=== PATIENT | female | born 1985 | race Hispanic/Latino ===

== ENCOUNTER → 2020-09-28 | Outpatient (CLI) | payer OTHER | END | disposition home or self-care (01) | LOC: OIH 10:47 | PROVIDERS: ATTEND Internal Medicine Cardiovascular Disease | DX: Z13.6 Encounter for screening for cardiovascular disorders (principal) | CPT/HCPCS: 75571 ==

== ENCOUNTER 2020-11-17 23:36 | Emergency (ER) | payer OTHER ==
[~2020-11-17] VITALS: Ht 172.7 cm; Wt 104.3 kg
[~2020-11-17 23:36] MED LIST: LACTATED RINGERS 1000ML 1,000 ML IV ONE
[2020-11-18] MEDS ORDERED: TAMSULOSIN HCL 0.4 MG CAP.ER.24H PO STA (00:29)
[2020-11-18] MEDS ORDERED: ONDANSETRON 4MG INJ IVP ONE (00:30)
[2020-11-18] MEDS ORDERED: LACTATED RINGERS 1000ML 1,500 ML IV ONE (00:30)
[2020-11-18] MEDS ORDERED: HYDROMORPHONE 2 MG VIAL (2MG/ML) IVP ONE (00:30)
[2020-11-18 00:52] LABS: BASOPHILS % (AUTO) 0.4 % (0.0-5.0); EOSINOPHILS % (AUTO) 2.1 % (0.0-8.0); HEMATOCRIT 33.8 % (36-48); LYMPHOCYTES % (AUTO) 23.7 % (21.0-51.0); MEAN CORPUSCULAR HEMOGLOBIN 28.9 pg (27.0-33.0); MEAN CORPUSCULAR VOLUME 90.4 fL (79-99); MONOCYTES % (AUTO) 5.8 % (3.0-13.0); NEUTROPHILS % (AUTO) 67.8 % (40.0-77.0); PLATELET COUNT (AUTO) 282 K/uL (130-400); RED BLOOD CELL COUNT(AUTO) 3.74 MIL/uL (4.00-5.50); RED CELL DISTRIBUTION WIDTH 14.9 % (11.0-15.5); WHITE BLOOD COUNT (AUTO) 8.5 K/uL (4.8-10.8)
[2020-11-18] MEDS ORDERED: HYDROMORPHONE 1 MG INJ ONE (01:02)
[2020-11-18 01:03] LABS: CREATININE 1.2 mg/dL (0.5-1.5); POTASSIUM 4.6 mmol/L (3.5-5.1)
[2020-11-18 01:10] LABS: ALBUMIN 3.4 g/dL (3.5-5.0); BILIRUBIN,TOTAL 0.6 mg/dL (0.2-1.0); TOTAL PROTEIN, SERUM 7.2 g/dL (6.0-8.3)
[2020-11-18 03:14] VITALS: BP 120/82
== END 2020-11-18 03:16 | disposition home or self-care (01) ==
LOC: EDH 23:36
DX: N20.1 Calculus of ureter (principal); N13.30 Unspecified hydronephrosis; N23 Unspecified renal colic; I10 Essential (primary) hypertension; F41.9 Anxiety disorder, unspecified
CPT/HCPCS: 36415; 74176; 80053; 84703; 85025; 86140; 96361; 96374; 96375; 99284; J1170; J2405; J7120

== ENCOUNTER 2020-11-18 12:16 | Emergency (ER) | payer OTHER ==
[~2020-11-18] VITALS: Ht 175.3 cm; Wt 104.3 kg
[2020-11-18 12:18] VITALS: BP 120/67
== END 2020-11-18 15:52 | disposition left against medical advice (07) ==
LOC: EDH 12:16
DX: R10.9 Unspecified abdominal pain (principal); Z53.21 Procedure and treatment not carried out due to patient leaving prior to being seen by health care provider

== ENCOUNTER → 2020-12-01 | Outpatient (CLI) | payer OTHER | END | disposition home or self-care (01) | LOC: RAH 11:25 | PROVIDERS: ATTEND Urology | DX: N13.30 Unspecified hydronephrosis (principal) | CPT/HCPCS: 76770 ==

== ENCOUNTER 2020-12-26 12:33 | Observation (INO) | payer OTHER ==
[2020-12-23 08:31] VITALS: BP 125/78
[2020-12-26] VITALS (23 sets, daily range): BP systolic 109–157; BP diastolic 66–87
[~2020-12-26] VITALS: Ht 175.3 cm; Wt 105.4 kg
[~2020-12-26 12:33] MED LIST changes: +CLON2TAB11 PO; -LACTATED RINGERS 1000ML 1,000 ML IV ONE; +LOSA50TA64 PO
[2020-12-26] MEDS ORDERED: LACTATED RINGERS 1000ML 1,000 ML IV ONE (12:49)
[2020-12-26] MEDS: CEFTRIAXONE 1G VIAL IVP SCH ×2 (13:00→17:25)
[2020-12-26] MEDS ORDERED: IOHEXOL-350 50ML VIAL IV ONE (13:40)
[2020-12-26] MEDS ORDERED: FENTANYL CITRATE PF 50 MCG/1 ML 2ML VIAL ONE (17:22)
[2020-12-26] MEDS ORDERED: SUCCINYLCHOLINE 200MG/10ML SYR ONE (17:22)
[2020-12-26] MEDS ORDERED: PROPOFOL 10 MG/ML 20ML VIAL IV ONE ×2 (17:22→18:22)
[2020-12-26] MEDS ORDERED: ROCURONIUM 10MG/1ML SYR 10 MG/ML ML ONE (17:22)
[2020-12-26] MEDS ORDERED: MIDAZOLAM HCL 1 MG/ML 2ML VIAL ONE ×2 (17:22→18:13)
[2020-12-26] MEDS ORDERED: NEOSTIGMINE 5MG/5ML SYR IV ONE (18:05)
[2020-12-26] MEDS ORDERED: GLYCOPYRROLATE 1 MG/5 ML SYRINGE ONE (18:05)
[2020-12-26 20:20] LABS: HEMATOCRIT 34.5 % (36-48); MEAN CORPUSCULAR HEMOGLOBIN 28.6 pg (27.0-33.0); MEAN CORPUSCULAR HGB CONC 31.3 g/dL (32.0-36.0); MEAN CORPUSCULAR VOLUME 91.3 fL (79-99); PLATELET COUNT (AUTO) 323 K/uL (130-400); RED BLOOD CELL COUNT(AUTO) 3.78 MIL/uL (4.00-5.50); RED CELL DISTRIBUTION WIDTH 14.6 % (11.0-15.5); WHITE BLOOD COUNT (AUTO) 13.2 K/uL (4.8-10.8)
[2020-12-26 20:31] LABS: INR 1.03 (0.85-1.15); PROTHROMBIN TIME 11.2 SEC (9.6-11.6)
[2020-12-26 20:32] LABS: PARTIAL THROMBOPLASTIN TIME 28.1 SEC (26.3-35.5)
[2020-12-26 20:40] LABS: BAND NEUTROPHILS % (MANUAL) 5 % (0-2); EOSINOPHILS % (MANUAL) 1 % (1-6); LYMPHOCYTES % (MANUAL) 16 % (22-44); MONOCYTES % (MANUAL) 4 % (2-9); REACTIVE LYMPHOCYTES 1 % (0-0); SEGMENTED NEUTROPHILS % 73 % (40-70)
[2020-12-26 20:42] LABS: MAN.DIFF COMMENT-IMPRESSION MANUAL DIFFERENTIAL
[2020-12-26 21:05] LABS: MYOGLOBIN 1895 ng/mL (10-92)
[2020-12-26 21:06] LABS: CREATININE 0.9 mg/dL (0.5-1.5); POTASSIUM 4.3 mmol/L (3.5-5.1)
[2020-12-26 21:07] LABS: ALBUMIN 3.3 g/dL (3.5-5.0); BILIRUBIN,TOTAL 0.5 mg/dL (0.2-1.0); TOTAL PROTEIN, SERUM 7.3 g/dL (6.0-8.3)
[2020-12-26 21:22] LABS: CREATINE KINASE, TOTAL 787 U/L (21-232)
[2020-12-26] MEDS: OXYBUTYNIN CHLORIDE 5 MG TABLET PO SCH (21:55)
[2020-12-26] MEDS: ASPIRIN 81 MG EC TAB PO SCH (21:55)
[2020-12-26] MEDS: PHENAZOPYRIDINE HCL 200 MG TABLET PO SCH (21:55)
[2020-12-26] MEDS ORDERED: 0.9%NACL 1000ML 1,000 ML IV SCH (22:30)
[2020-12-26] MEDS: 0.9%NACL 1000ML 1,000 ML IV SCH (23:29)
[2020-12-27] VITALS (7 sets, daily range): BP systolic 98–118; BP diastolic 64–77
[2020-12-27 00:04] LABS: APPEARANCE,URINE Cloudy (CLEAR); BILIRUBIN,URINE Small (NEGATIVE); COLOR,URINE Orange (YELLOW); GLUCOSE, URINE (UA) Negative (NEGATIVE); KETONES,URINE Negative (NEGATIVE); LEUKOCYTE ESTERASE ,URINE Small (NEGATIVE); NITRATE,URINE Positive (NEGATIVE); OCCULT BLOOD,URINE Large (NEGATIVE); PH,URINE 6.5 (5.0-8.0); PROTEIN,URINE POS 2+ mg/dL (NEGATIVE)
[2020-12-27 00:15] LABS: BACTERIA,URINE Few /HPF (None Seen); RBC,URINE >100 /HPF (0-1)
[2020-12-27] MEDS ORDERED: CEFTRIAXONE 1G VIAL IVP SCH (02:00)
[2020-12-27 02:06] LABS: BASOPHILS % (AUTO) 0.3 % (0.0-5.0); EOSINOPHILS % (AUTO) 1.2 % (0.0-8.0); HEMATOCRIT 34.1 % (36-48); LYMPHOCYTES % (AUTO) 25.8 % (21.0-51.0); MEAN CORPUSCULAR HEMOGLOBIN 28.1 pg (27.0-33.0); MEAN CORPUSCULAR HGB CONC 31.4 g/dL (32.0-36.0); MEAN CORPUSCULAR VOLUME 89.5 fL (79-99); NEUTROPHILS % (AUTO) 67.4 % (40.0-77.0); PLATELET COUNT (AUTO) 349 K/uL (130-400); RED BLOOD CELL COUNT(AUTO) 3.81 MIL/uL (4.00-5.50); RED CELL DISTRIBUTION WIDTH 14.5 % (11.0-15.5); WHITE BLOOD COUNT (AUTO) 11.3 K/uL (4.8-10.8)
[2020-12-27 03:00] LABS: CHOLESTEROL 213 mg/dL (<200); HDL CHOLESTEROL 38 mg/dL (35-85); LDL DIRECT 148 mg/dL (0-99); MYOGLOBIN 843 ng/mL (10-92); TRIGLYCERIDES 183 mg/dL (30-200)
[2020-12-27 03:02] LABS: CREATINE KINASE, TOTAL 2570 U/L (21-232)
[2020-12-27 04:06] LABS: ALBUMIN 3.3 g/dL (3.5-5.0); BILIRUBIN,TOTAL 0.6 mg/dL (0.2-1.0); CREATININE 0.9 mg/dL (0.5-1.5); POTASSIUM 4.1 mmol/L (3.5-5.1); TOTAL PROTEIN, SERUM 7.3 g/dL (6.0-8.3)
[2020-12-27 05:18] LABS: MYOGLOBIN 415 ng/mL (10-92)
[2020-12-27 05:38] LABS: CREATINE KINASE, TOTAL 2267 U/L (21-232)
[2020-12-27] MEDS: CEFTRIAXONE 1G VIAL IVP SCH (08:40)
[2020-12-27] MEDS: ASPIRIN 81 MG EC TAB PO SCH (08:40)
[2020-12-27] MEDS: 0.9%NACL 1000ML 1,000 ML IV SCH ×4 (08:40→16:48)
[2020-12-27] MEDS: OXYBUTYNIN CHLORIDE 5 MG TABLET PO SCH ×2 (08:41→20:28)
[2020-12-27] MEDS: PHENAZOPYRIDINE HCL 200 MG TABLET PO SCH ×2 (08:41→20:28)
[2020-12-27] MEDS: LOSARTAN 50 MG TABLET PO SCH ×2 (09:00→20:28)
[2020-12-27 11:08] LABS: MYOGLOBIN 140 ng/mL (10-92)
[2020-12-27 11:11] LABS: CREATINE KINASE, TOTAL 2467 U/L (21-232)
[2020-12-27] MEDS ORDERED: FAMOTIDINE 20MG TAB PO SCH (12:30)
[2020-12-27] MEDS ORDERED: CLONAZEPAM 2 MG TABLET PO SCH (21:00)
[2020-12-28 03:53] VITALS: BP 106/67
[2020-12-28 05:14] LABS: HEMATOCRIT 32.1 % (36-48); MEAN CORPUSCULAR HEMOGLOBIN 27.8 pg (27.0-33.0); MEAN CORPUSCULAR HGB CONC 30.2 g/dL (32.0-36.0); RED BLOOD CELL COUNT(AUTO) 3.49 MIL/uL (4.00-5.50); RED CELL DISTRIBUTION WIDTH 14.6 % (11.0-15.5); WHITE BLOOD COUNT (AUTO) 9.5 K/uL (4.8-10.8)
[2020-12-28] MEDS: 0.9%NACL 1000ML 1,000 ML IV SCH (06:38)
[2020-12-28 08:01] VITALS: BP 103/62
[2020-12-28] MEDS: OXYBUTYNIN CHLORIDE 5 MG TABLET PO SCH (11:36)
[2020-12-28] MEDS: CEFTRIAXONE 1G VIAL IVP SCH (11:36)
[2020-12-28] MEDS: PHENAZOPYRIDINE HCL 200 MG TABLET PO SCH (11:36)
[2020-12-28] MEDS: ASPIRIN 81 MG EC TAB PO SCH (11:36)
[2020-12-28 12:15] VITALS: BP 110/60
[2020-12-28 16:58] VITALS: BP 161/107
[2020-12-28 16:59] VITALS: BP 114/62
== END 2020-12-28 18:30 | disposition home or self-care (01) ==
LOC: DAH 12:33 → 3DH 12:34
PROVIDERS: ADMIT Urology; ATTEND Urology
DX: A41.9 Sepsis, unspecified organism (principal); Z20.822 Contact with and (suspected) exposure to COVID-19; N20.1 Calculus of ureter; R31.29 Other microscopic hematuria; E78.2 Mixed hyperlipidemia; R07.89 Other chest pain; M62.82 Rhabdomyolysis; F41.0 Panic disorder [episodic paroxysmal anxiety]; N39.0 Urinary tract infection, site not specified; E66.9 Obesity, unspecified; F41.1 Generalized anxiety disorder; N13.6 Pyonephrosis; Z68.34 Body mass index [BMI] 34.0-34.9, adult; Z87.442 Personal history of urinary calculi; Z90.49 Acquired absence of other specified parts of digestive tract
CPT/HCPCS: 36415 ×3; 52356; 71045; 74420; 80053 ×2; 80061; 81001; 82360; 82550 ×6; 83605; 83735; 83874 ×4; 83880; 84145; 84443; 84484 ×4; 85025 ×2; 85027; 85610; 85730; 87040 ×2; 87088; 87635; 93005; 96361 ×3; 96374; 96376; A4215; A4221; A4222; A4223; A4344; A4358; A4663; A6260; C1758 ×2; C1769 ×2; C2617; C9803; G0378 ×43; J0330; J0696 ×3; J2250 ×2; J2704; J2710; J3010; J3490; J7030; J7120 ×2; Q9967

== ENCOUNTER → 2022-03-14 | Outpatient (CLI) | payer OTHER | END | disposition home or self-care (01) | LOC: RAH 11:09 | PROVIDERS: ATTEND Urology | DX: N20.0 Calculus of kidney (principal); N23 Unspecified renal colic; N32.89 Other specified disorders of bladder | CPT/HCPCS: 76770 ==